=== PATIENT | male | born 1935 | race Caucasian/White ===

== ENCOUNTER 2019-02-27 14:00 | Inpatient (IN) | payer OTHER ==
[~2019-02-27] VITALS: Ht 172.7 cm; Wt 103.8 kg
[2019-02-27 14:53] LABS: APPEARANCE,URINE Clear (CLEAR); BILIRUBIN,URINE Negative (NEGATIVE); COLOR,URINE Yellow (YELLOW); GLUCOSE, URINE (UA) >=1000 mg/dL (NEGATIVE); KETONES,URINE Negative (NEGATIVE); LEUKOCYTE ESTERASE ,URINE Small (NEGATIVE); NITRATE,URINE Negative (NEGATIVE); OCCULT BLOOD,URINE Negative (NEGATIVE); PROTEIN,URINE Negative (NEGATIVE); UROBILINOGEN,URINE 0.2 mg/dL (0.2-1.0)
[2019-02-27 14:54] LABS: CREATININE 1.3 mg/dL (0.5-1.5); POTASSIUM 3.7 mmol/L (3.5-5.1)
[2019-02-27 15:06] VITALS: BP 119/60
[2019-02-27] MEDS ORDERED: SIMV80TA91 PO (15:12)
[2019-02-27] MEDS ORDERED: TAMS-1 PO (15:12)
[2019-02-27] MEDS ORDERED: METF-444 PO (15:12)
[2019-02-27] MEDS ORDERED: ASPI-555 PO (15:12)
[2019-02-27] MEDS ORDERED: CHLO50TA PO (15:12)
[2019-02-27] MEDS ORDERED: EMPAGLIFLOZIN PO (15:12)
[2019-02-27] MEDS ORDERED: GLIP10TA9 PO (15:12)
[2019-02-27 15:31] LABS: BACTERIA,URINE Few /HPF (None Seen); RBC,URINE 0-1 /HPF (0-1)
--- NOTE | 2019-02-27 17:40 | NUR ---
LABS ABNORMAL UA REPORTED TO DR. CORRAL. FURTHER ORDERS GIVEN
[2019-02-28] VITALS (23 sets, daily range): BP systolic 114–141; BP diastolic 59–76
[2019-02-28] MEDS ORDERED: GENTAMICIN SULFATE 240 MG in SODIUM CHLORIDE 0.9% 100 ML IV SCH (05:00)
[2019-02-28] MEDS ORDERED: CEFAZOLIN 3GM /D5W 100ML 100 ML IV SCH (05:00)
[2019-02-28] MEDS ORDERED: COMPOUND IV REFRIGERATED 1 EACH IVSOLN MISC PRN (05:00)
[2019-02-28] MEDS ORDERED: VANCOMYCIN 2 GM in SODIUM CHLORIDE 0.9% 500ML 500 ML IV ONE (05:00)
[2019-02-28] MEDS ORDERED: CEFAZOLIN SODIUM 1 GM VIAL ONE ×2 (10:47→14:17)
[2019-02-28] MEDS ORDERED: SODIUM CHLORIDE 0.9% 1000ML 1,000 ML IV ONE (10:47)
[2019-02-28] MEDS ORDERED: LIDOCAINE PF 2% 5ML ABBOJECT ONE (14:06)
[2019-02-28] MEDS ORDERED: ACETAMINOPHEN EXTRA STRENGTH 500 MG TABLET ONE (14:06)
[2019-02-28] MEDS ORDERED: ROPIVACAINE 0.5% 5MG/ML 30ML IJ ONE (14:06)
[2019-02-28] MEDS ORDERED: SUCCINYLCHOLINE 200MG/10ML SYR ONE (14:06)
[2019-02-28] MEDS ORDERED: ROCURONIUM 10MG/1ML SYR 10 MG/ML ML ONE ×2 (14:07→16:34)
[2019-02-28] MEDS ORDERED: CELECOXIB 200 MG CAP ONE (14:07)
[2019-02-28] MEDS ORDERED: OXYCODONE HCL 10 MG TAB.SR.12H PO ONE (14:07)
[2019-02-28] MEDS ORDERED: KETOROLAC TROMETHAMINE 15MG/ML ONE (14:07)
[2019-02-28] MEDS ORDERED: PROPOFOL 10 MG/ML 20ML VIAL IV ONE (14:07)
[2019-02-28] MEDS ORDERED: FENTANYL CITRATE PF 50 MCG/1 ML 2ML VIAL ONE ×2 (14:07→18:06)
[2019-02-28] MEDS ORDERED: TRANEXAMIC ACID 1000MG/10ML IV ONE ×2 (14:17→18:32)
[2019-02-28] MEDS ORDERED: EPHEDRINE SULFATE 50 MG/ML AMPULE ONE (15:27)
[2019-02-28] MEDS ORDERED: CEFAZOLIN SODIUM 1 GM VIAL IRRIG ONE (16:11)
[2019-02-28] MEDS ORDERED: KETOROLAC TROMETHAMINE 30MG/ML ONE (17:54)
[2019-02-28] MEDS ORDERED: ONDANSETRON HCL 4 MG/2 ML VIAL ONE (17:55)
[2019-02-28] MEDS ORDERED: NEOSTIGMINE 5MG/5ML SYR IV ONE (17:55)
[2019-02-28] MEDS ORDERED: GLYCOPYRROLATE 1 MG/5 ML SYRINGE ONE (17:55)
[2019-02-28] MEDS ORDERED: CALCIUM CARBONATE 500 MG TABLET PO PRN (18:15)
[2019-02-28] MEDS ORDERED: FERROUS FUMARATE 324 MG TABLET PO PRN (18:15)
[2019-02-28] MEDS ORDERED: ONDANSETRON HCL 4 MG/2 ML VIAL IVP PRN (18:15)
[2019-02-28] MEDS ORDERED: DiphenhydrAMINE HCL 50 MG/ML VIAL IVP PRN (18:15)
[2019-02-28] MEDS ORDERED: KETOROLAC TROMETHAMINE 15MG/ML IV PRN (18:15)
[2019-02-28] MEDS ORDERED: TEMAZEPAM 15 MG CAPSULE PO PRN (18:15)
[2019-02-28] MEDS ORDERED: POTASSIUM CHLORIDE 10% ELIXIR 20 MEQ/15 ML UDCUP PO PRN (18:15)
[2019-02-28] MEDS ORDERED: OXYCODONE HCL 5 MG TAB PO PRN ×2 (18:15)
[2019-02-28] MEDS ORDERED: TRAMADOL HCL 50 MG TABLET PO PRN (18:15)
[2019-02-28] MEDS ORDERED: POTASSIUM CHLORIDE 20MEQ/100ML 100 ML IV PRN (18:15)
[2019-02-28] MEDS ORDERED: POTASSIUM CHLORIDE 20 MEQ ERTAB PO PRN (18:15)
[2019-02-28] MEDS ORDERED: LIDOCAINE HCL-MPF 1% 2ML VIAL IVP PRN (18:15)
[2019-02-28] MEDS: INSULIN HUMULIN R 100 UNIT/ML 3ML SQ SCH (21:00)
[2019-02-28] MEDS: SIMVASTATIN 20 MG TABLET PO SCH (21:35)
[2019-02-28] MEDS: SODIUM CHLORIDE 0.9% 1000ML 1,000 ML IV SCH (21:35)
[2019-02-28] MEDS: CELECOXIB 200 MG CAP PO SCH (21:35)
[2019-02-28] MEDS: ASPIRIN 325 MG TABLET PO SCH (21:35)
[2019-02-28] MEDS: PREGABALIN 25 MG CAP PO SCH (21:35)
[2019-02-28] MEDS: ACETAMINOPHEN EXTRA STRENGTH 500 MG TABLET PO SCH (21:38)
[2019-03-01] VITALS (7 sets, daily range): BP systolic 99–125; BP diastolic 46–67
[2019-03-01] MEDS: CEFAZOLIN SODIUM 1 GM VIAL IVP SCH ×2 (02:41→08:25)
[2019-03-01] MEDS: ACETAMINOPHEN EXTRA STRENGTH 500 MG TABLET PO SCH ×3 (02:45→16:57)
[2019-03-01] MEDS: SODIUM CHLORIDE 0.9% 1000ML 1,000 ML IV SCH ×2 (04:01→07:43)
[2019-03-01 05:17] LABS: HEMATOCRIT 33.5 % (42-54); MEAN CORPUSCULAR HEMOGLOBIN 32.5 pg (27.0-33.0); MEAN CORPUSCULAR VOLUME 95.7 fL (79-99); NUCLEATED RED BLOOD CELLS 0.1 % (0.0-0.19); PLATELET COUNT (AUTO) 129 K/uL (130-400); WHITE BLOOD COUNT (AUTO) 8.5 K/uL (4.8-10.8)
[2019-03-01 05:23] LABS: CREATININE 1.6 mg/dL (0.5-1.5)
[2019-03-01] MEDS: INSULIN HUMULIN R 100 UNIT/ML 3ML SQ SCH ×4 (07:30→21:35)
[2019-03-01] MEDS ORDERED: CEFAZOLIN SODIUM 1 GM VIAL ONE (08:24)
[2019-03-01] MEDS: PREGABALIN 25 MG CAP PO SCH ×2 (08:27→21:31)
[2019-03-01] MEDS: ASPIRIN 325 MG TABLET PO SCH ×2 (08:27→21:31)
[2019-03-01] MEDS: CELECOXIB 200 MG CAP PO SCH ×2 (08:28→21:31)
[2019-03-01] MEDS: FAMOTIDINE 20MG TAB 20 MG TAB PO SCH (08:28)
[2019-03-01] MEDS: POLYETHYLENE GLYCOL 3350 17 GM POWD.PACK PO SCH (08:28)
[2019-03-01] MEDS: TAMSULOSIN HCL 0.4 MG CAP.ER.24H PO SCH ×2 (08:28→16:06)
[2019-03-01] MEDS: METFORMIN HCL 500 MG TABLET PO SCH ×2 (08:28→16:06)
[2019-03-01] MEDS: GLIPIZIDE 5 MG TABLET PO SCH (08:29)
[2019-03-01] MEDS: EMPAGLIFLOZIN 25MG PO SCH (08:39)
[2019-03-01] MEDS: CHLORTHALIDONE 50MG PO SCH (08:39)
--- NOTE | 2019-03-01 15:00 | NUR ---
INITIAL AND REFERRAL MET W PT, S/P NISHA, LIVES W SPOUSE WHO WILL PROVIDE TRANSPORT, INDP OF ADLS, DIRVES, HAS COMMODE, STD WALKER AND ROLLING WALKER AT HOME WELL A CANE. NARGIS/CHOICE SIGNED FOR HOME HEALTH, FAXED TO [facility], CONTACT MADE WITH [facility] [employer] COVERED FOR [facility] WILL START WORKING ON REFERRAL Addendum: 03/01/19 at 1700 by REMBERTO RIGGS RN CM Amended: Links added.
[2019-03-01] MEDS: SIMVASTATIN 20 MG TABLET PO SCH (21:31)
[2019-03-02] MEDS: ACETAMINOPHEN EXTRA STRENGTH 500 MG TABLET PO SCH ×2 (02:29→11:18)
[2019-03-02 04:00] VITALS: BP 133/52
[2019-03-02] MEDS: INSULIN HUMULIN R 100 UNIT/ML 3ML SQ SCH ×3 (06:28→16:30)
[2019-03-02] MEDS: GLIPIZIDE 5 MG TABLET PO SCH (06:30)
[2019-03-02 08:00] VITALS: BP 103/53
[2019-03-02] MEDS: CELECOXIB 200 MG CAP PO SCH (08:48)
[2019-03-02] MEDS: POLYETHYLENE GLYCOL 3350 17 GM POWD.PACK PO SCH (08:48)
[2019-03-02] MEDS: FAMOTIDINE 20MG TAB 20 MG TAB PO SCH (08:49)
[2019-03-02] MEDS: ASPIRIN 325 MG TABLET PO SCH (08:49)
[2019-03-02] MEDS: TAMSULOSIN HCL 0.4 MG CAP.ER.24H PO SCH (08:49)
[2019-03-02] MEDS: METFORMIN HCL 500 MG TABLET PO SCH ×2 (08:49→17:14)
[2019-03-02] MEDS: PREGABALIN 25 MG CAP PO SCH (08:49)
[2019-03-02] MEDS: EMPAGLIFLOZIN 25MG PO SCH (08:56)
[2019-03-02] MEDS: CHLORTHALIDONE 50MG PO SCH (08:56)
--- NOTE | 2019-03-02 11:52 | NUR ---
FOLLOW ING UP ON [facility] TO ASK RE NAME OF DESIGNATED FOR PT. Addendum: 03/02/19 at 1155 by REMBERTO RIGGS RN CM Amended: Links added.
[2019-03-02 12:00] VITALS: BP 128/45
--- NOTE | 2019-03-02 13:25 | NUR ---
[facility] HOME [facility]ALTH CALL RECD [facility] [place] [facility] [place]- INTERIM WILL INFORM PRIMARY RN Addendum: 03/02/19 at 1336 by REMBERTO RIGGS RN CM Amended: Links added.
[2019-03-02] MEDS ORDERED: BISACODYL 10 MG SUPP.RECT RC ONE (15:11)
[2019-03-02 16:00] VITALS: BP 118/64
[2019-03-02] MEDS ORDERED: HYDR-4457 PO (17:21)
[2019-03-02] MEDS ORDERED: ASPI-1012 PO (17:21)
--- NOTE | 2019-03-02 18:15 | NUR ---
DISCHARGE DISCHARGE TEACHING DONE WITH PATIENT AND FAMILY USING TEACHBACK METHOD, VERBALIZED UNDERSTANDING. NO NOTED SOB OR DISTRESS. NEW MEDICATION ADMINISTRATION TEACHING DONE WITH PATIENT, VERBALIZED UNDERSTANDING. PT AWARE OF NEED TO ATTEND DR. CORRAL APPOINTMENT. DRESSING TO KNEE DRY AND INTACT. DRESSING CHANGED PER DR. CORRAL, INCISION IS DRY AND INTACT. DRESSING TEACHING DONE WITH PATIENT, VERBALIZED UNDERSTANDING. IV REMOVED, CATH TIP INTACT. PENDING TO BE TRANSFERRED OUT VIA PRIVATE VEHICLE. REPORT CALLED TO HOME HEALTH.
[2019-03-03] MEDS ORDERED: BISACODYL 10 MG SUPP.RECT RC PRN (18:15)
== END 2019-03-02 18:36 | disposition home health service (06) | DRG 470 ==
LOC: EDSTATUS 14:00 → DAHIP 02-28 08:16 → 4BH 02-28 19:44 → 4AH 03-01 06:05
PROVIDERS: ADMIT Orthopaedic Surgery; ATTEND Orthopaedic Surgery
PROC: 0SR90JZ Replacement of Right Hip Joint with Synthetic Substitute, Open Approach (ICD-10-PCS; principal; 2019-02-28 14:49)
PROC: 5A09357 Assistance with Respiratory Ventilation, Less than 24 Consecutive Hours, Continuous Positive Airway Pressure (ICD-10-PCS; 2019-03-01)
PROC: 5A09357 Assistance with Respiratory Ventilation, Less than 24 Consecutive Hours, Continuous Positive Airway Pressure (ICD-10-PCS; 2019-03-02)
DX: M16.11 Unilateral primary osteoarthritis, right hip (principal); I10 Essential (primary) hypertension; E78.5 Hyperlipidemia, unspecified; E11.9 Type 2 diabetes mellitus without complications; E66.9 Obesity, unspecified; N40.0 Benign prostatic hyperplasia without lower urinary tract symptoms; Z96.653 Presence of artificial knee joint, bilateral; Z96.642 Presence of left artificial hip joint; K21.9 Gastro-esophageal reflux disease without esophagitis; G89.29 Other chronic pain; Z90.49 Acquired absence of other specified parts of digestive tract; Z80.3 Family history of malignant neoplasm of breast; Z85.46 Personal history of malignant neoplasm of prostate; Z82.49 Family history of ischemic heart disease and other diseases of the circulatory system; Z68.34 Body mass index [BMI] 34.0-34.9, adult
CPT/HCPCS: 36415; 73503; 80048; 81001; 82948; 85027; 87088; 87641; 88304; 93005; 97039; A4344; C1776; G0378; J0330; J0690; J1580; J1815; J1885; J2001; J2405; J2704; J2710; J2795; J3010; J3490; J7030

== ENCOUNTER → 2019-08-24 | Outpatient (CLI) | payer OTHER ==
[~2019-08-24] MED LIST: ASPI-1012 PO; CHLO50TA PO; EMPAGLIFLOZIN PO; GLIP10TA9 PO; HYDR-4457 PO; METF-444 PO; SIMV80TA91 PO; TAMS-1 PO
== END | disposition home or self-care (01) ==
LOC: RAH 07:16
PROVIDERS: ATTEND Internal Medicine
DX: S43.491A Other sprain of right shoulder joint, initial encounter (principal); M19.011 Primary osteoarthritis, right shoulder; M19.012 Primary osteoarthritis, left shoulder; M21.922 Unspecified acquired deformity of left upper arm; X58.XXXA Exposure to other specified factors, initial encounter; Y93.89 Activity, other specified; Y92.89 Other specified places as the place of occurrence of the external cause; Y99.8 Other external cause status
CPT/HCPCS: 73221